=== PATIENT | female | born 2000 | race Caucasian/White ===

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

== ENCOUNTER 2021-04-10 22:46 | Inpatient (IN) ==
[2021-04-10 23:01] VITALS: BMI 38.1
[2021-04-10 23:52] LABS: AMNISURE ROM TEST THERE IS A RUPTURE (NO RUPTURE)
[2021-04-11] MEDS ORDERED: LR 1000 ML IV 1,000 ML IV ONE (01:06)
[2021-04-11] MEDS ORDERED: ANCEF 1 GRAM IV PREMIX* 2 G/100 ML BAG IV ONE (01:06)
[2021-04-11] MEDS ORDERED: ANCEF VIAL 1 GRAM IVP ONE (01:24)
[2021-04-11 01:51] LABS: BASOPHILS % (AUTO) 0.1 % (0.2-1.0); EOSINOPHILS # (AUTO) 0.1 x10^3/uL (0.0-0.2); EOSINOPHILS % (AUTO) 0.6 % (0.9-2.9); HEMATOCRIT 38.8 % (36.0-47.0); HEMOGLOBIN 13.4 g/dL (12.0-16.0); LYMPHOCYTES # (AUTO) 2.1 X10^3/uL (1.3-2.9); LYMPHOCYTES % (AUTO) 19.1 % (21.0-51.0); MEAN CORPUSCULAR HEMOGLOBIN 30.7 pg (27.0-34.0); MEAN CORPUSCULAR HGB CONC 34.6 g/dL (33.0-35.0); MEAN CORPUSCULAR VOLUME 88.7 fL (80.0-100.0); MEAN PLATELET VOLUME 7.8 fL (7.4-11.0); MONOCYTES # (AUTO) 0.6 x10^3/uL (0.3-0.8); MONOCYTES % (AUTO) 5.7 % (0.0-13.0); NEUTROPHILS # (AUTO) 8.3 x10^3/uL (2.2-4.8); NEUTROPHILS % (AUTO) 74.5 % (42.0-75.0); PLATELET COUNT 234 X10^3/uL (150.0-450.0); RED BLOOD COUNT 4.38 X10^6/uL (3.5-5.4); WHITE BLOOD COUNT 11.1 X10^3/uL (3.6-10.0)
[2021-04-11] MEDS ORDERED: DILAUDID INJ ONE (02:01)
[2021-04-11 02:03] LABS: BLOOD UREA NITROGEN 6 mg/dL (7-18); CALCIUM 8.8 mg/dL (8.5-10.1); CHLORIDE 105 mmol/L (98-107); CREATININE 0.54 mg/dL (0.55-1.02); SODIUM 138 mmol/L (136-145); eGFR NON BLACK RACES > 60 (>60)
[2021-04-11] MEDS ORDERED: VERSED ONE (02:05)
[2021-04-11] MEDS ORDERED: PITOCIN ONE (02:05)
[2021-04-11] MEDS ORDERED: EPHEDRINE SULFATE INJ ONE (02:05)
[2021-04-11] MEDS ORDERED: MARCAINE SPINAL ONE (02:05)
[2021-04-11] MEDS ORDERED: XYLOCAINE 1 % (PLAIN) ONE (02:05)
[2021-04-11] MEDS ORDERED: D5 1/2 NS 1L W PITOCIN 20 UNITS/L 20 UNITS/1,000 ML BAG IV ONE (02:55)
[2021-04-11 03:02] LABS: BILIRUBIN,URINE NEGATIVE (NEGATIVE); BLOOD/HEMOGLOBIN,URINE 2+ (NEGATIVE); GLUCOSE, URINE NEGATIVE (NEGATIVE); KETONES,URINE NEGATIVE (NEGATIVE); LEUKOCYTE ESTERASE ,URINE NEGATIVE (NEGATIVE); NITRITES,URINE NEGATIVE (NEGATIVE); PROTEIN,URINE NEGATIVE (NEGATIVE); UROBILINOGEN,URINE 1+ (NORMAL)
[2021-04-11 03:17] LABS: APPEARANCE,URINE CLEAR (CLEAR); BACTERIA,URINE NEGATIVE /HPF (NEGATIVE); COLOR,URINE YELLOW (YELLOW); RBC,URINE NONE SEEN /HPF (0-3); SQUAMOUS EPITHELIAL CELL,UR NEGATIVE /HPF (NEGATIVE)
[2021-04-11] MEDS ORDERED: PHENERGAN INJ 25 MG IM PRN (03:42)
[2021-04-11] MEDS ORDERED: ZOFRAN INJ 4 MG VIAL IVP PRN (03:42)
[2021-04-11] MEDS ORDERED: BARHEMSYS INJ IVP PRN (03:42)
[2021-04-11] MEDS ORDERED: REGLAN INJ 10 MG VIAL IVP PRN ×2 (03:42→04:10)
[2021-04-11] MEDS ORDERED: BENADRYL INJ 50 MG VIAL IVP PRN ×2 (03:42→04:10)
[2021-04-11] MEDS ORDERED: DILAUDID INJ IVP PRN (03:42)
[2021-04-11] MEDS ORDERED: PERCOCET TAB 5/325 MG PO PRN ×2 (04:10→13:23)
[2021-04-11] MEDS ORDERED: MYLICON TAB 80 MG CHEW PO PRN (04:10)
[2021-04-11] MEDS ORDERED: D5 1/2 NS 1000 ML 1,000 ML with PITOCIN 20 UNITS IV SCH ×2 (04:10)
[2021-04-11] MEDS ORDERED: TORADOL 30 MG VIAL IVP PRN (04:10)
[2021-04-11] MEDS ORDERED: ADACEL or BOOSTRIX TDaP VACCINE IM ONE (04:10)
[2021-04-11] MEDS ORDERED: NARCAN INJ IVP PRN (04:10)
[2021-04-11] MEDS ORDERED: HYPERRHO S/D (or RHOGAM) IM PRN (04:10)
[2021-04-11] MEDS: ZOFRAN INJ 4 MG VIAL IVP PRN (05:31)
[2021-04-11 05:42] LABS: HEMATOCRIT 35.8 % (36.0-47.0); HEMOGLOBIN 12.2 g/dL (12.0-16.0)
[2021-04-11] MEDS: D5 1/2 NS 1000 ML 1,000 ML with PITOCIN 20 UNITS IV SCH ×6 (08:30→22:54)
[2021-04-11] MEDS: PRENATAL PLUS PO SCH (09:34)
[2021-04-11] MEDS: BACTROBAN TOPICAL OINT TOP SCH (21:20)
[2021-04-11] MEDS: COLACE CAP 100 MG PO SCH (21:20)
[2021-04-12] MEDS: MOTRIN TAB 800 MG PO PRN ×2 (03:00→07:38)
[2021-04-12] MEDS: D5 1/2 NS 1000 ML 1,000 ML with PITOCIN 20 UNITS IV SCH ×2 (05:30)
[2021-04-12] MEDS: BACTROBAN TOPICAL OINT TOP SCH (05:30)
[2021-04-12] MEDS ORDERED: DEPO-PROVERA CONTRACEPTIVE INJ IM ONE (07:35)
[2021-04-12] MEDS: ZOFRAN INJ 4 MG VIAL IVP PRN (07:40)
[2021-04-12 09:09] VITALS: BP 126/65
[2021-04-12] MEDS: PRENATAL PLUS PO SCH (09:45)
[2021-04-12] MEDS: COLACE CAP 100 MG PO SCH (09:45)
== END 2021-04-12 12:45 | disposition home or self-care (01) | DRG 787 ==
LOC: ER 22:52 → LD 04-11 00:58 → OBS 04-11 04:10
PROVIDERS: ADMIT Specialist; ATTEND Specialist
DX: N85.8 Other specified noninflammatory disorders of uterus; O36.0930 Maternal care for other rhesus isoimmunization, third trimester, not applicable or unspecified; O34.211 Maternal care for low transverse scar from previous cesarean delivery; Z23 Encounter for immunization; O34.40 Maternal care for other abnormalities of cervix, unspecified trimester; Z37.0 Single live birth; Z3A.39 39 weeks gestation of pregnancy